=== PATIENT | male | born 1970 | race Hispanic/Latino ===

== ENCOUNTER 2018-07-30 20:40 | Emergency (ER) | payer BC ==
[~2018-07-30] VITALS: Ht 182.9 cm; Wt 100.7 kg
[2018-07-30] MEDS ORDERED: TETANUS/DIPHTHERIA TOX ADULT 0.5 ML SYR IM ONE (21:15)
[2018-07-30] MEDS ORDERED: TETANUS/DIPHTHERIA TOX ADULT 0.5 ML SYR ONE (21:34)
--- NOTE | 2018-07-30 22:17 | Diagnostic Imaging Report ---
FEMUR 2 VIEW RT - [facility] -7 radiographs. HISTORY: Pain COMPARISON: None available. FINDINGS: No acute displaced fracture. Osseous alignment is within normal limits. The soft tissues appear unremarkable. IMPRESSION: No acute fracture or dislocation of the right femur. Signed by: Dr. Juve Drummond MD on 07/30/2018 10:14 PM
[2018-07-30] MEDS ORDERED: HYDROCODONE/APAP 5MG-325MG TAB ONE (22:30)
[2018-07-30] MEDS ORDERED: HYDROCODONE/APAP 5MG-325MG TAB PO ONE (22:30)
== END 2018-07-30 22:30 | disposition home or self-care (01) ==
LOC: FSED 20:40
DX: S70.11XA Contusion of right thigh, initial encounter (principal); S00.83XA Contusion of other part of head, initial encounter; S00.81XA Abrasion of other part of head, initial encounter; S70.311A Abrasion, right thigh, initial encounter; V92.09XA Drowning and submersion due to fall off unspecified watercraft, initial encounter; Y93.89 Activity, other specified; Z91.041 Radiographic dye allergy status
CPT/HCPCS: 85025; 90471; 90714; 99283